=== PATIENT | male | born 1960 | race African-American/Black ===

== ENCOUNTER 2020-03-24 01:20 | Emergency (ER) | payer MEDICAID ==
[~2020-03-24] VITALS: Ht 180.3 cm; Wt 91.0 kg
[2020-03-24] MEDS ORDERED: LORAZEPAM 1MG TABLET PO NR (02:00)
[2020-03-24 03:21] LABS: BASOPHILS % 0.6 % (0.0-2.0); EOSINOPHILS % 0.9 % (0.0-5.0); HEMATOCRIT. 43.4 % (42.0-52.0); HEMOGLOBIN. 14.7 g/dL (14.0-18.0); LYMPHOCYTES % 15.4 % (20.0-50.0); MEAN CORPUSCULAR VOLUME 88.9 fL (80.0-94.0); MEAN PLATELET VOLUME 8.4 fl (7.4-10.4); MONOCYTES % 5.8 % (2.0-8.0); NEUTROPHILS % 77.3 % (40.0-76.0); PLATELET 228 x1000/uL (130-400); RED BLOOD CELL COUNT 4.88 mill/uL (4.7-6.1); RED CELL DISTRIBUTION WIDTH 13.1 % (11.6-14.6)
[2020-03-24 03:23] LABS: CHLORIDE 110 mEq/L (98-107)
[2020-03-24 03:28] LABS: ETHANOL BLOOD < 10 mg/dL
[2020-03-24 05:46] VITALS: BP 119/69
== END 2020-03-24 07:10 | disposition home or self-care (01) ==
LOC: ER 01:20
DX: F19.10 Other psychoactive substance abuse, uncomplicated (principal); F91.8 Other conduct disorders; I49.9 Cardiac arrhythmia, unspecified
CPT/HCPCS: 36415; 80053; 80307; 80320; 80329; 85025; 93005; 99283; G0480